=== PATIENT | female | born 1990 | race Two or more races ===

== ENCOUNTER 2017-12-24 11:21 | Emergency (ER) | payer MEDICAID ==
[~2017-12-24] VITALS: Ht 157.5 cm; Wt 56.0 kg
[~2017-12-24 11:21] MED LIST: BUPR200T2 PO; GABA-530 PO; HYDR-569 PO; MIRT30TA3 PO; QUET300T2 PO
[2017-12-24] MEDS ORDERED: IBUP-1984 PO (12:59)
[2017-12-24 13:17] VITALS: BP 108/74
== END 2017-12-24 13:18 | disposition home or self-care (01) ==
LOC: ER 11:21
DX: S05.11XA Contusion of eyeball and orbital tissues, right eye, initial encounter (principal); S60.212A Contusion of left wrist, initial encounter; S09.90XA Unspecified injury of head, initial encounter; S40.212A Abrasion of left shoulder, initial encounter; F12.90 Cannabis use, unspecified, uncomplicated; Z98.890 Other specified postprocedural states; Z56.0 Unemployment, unspecified; Z79.899 Other long term (current) drug therapy; X58.XXXA Exposure to other specified factors, initial encounter; Y93.89 Activity, other specified; Y92.89 Other specified places as the place of occurrence of the external cause; Y99.8 Other external cause status
CPT/HCPCS: 70450; 99284

== ENCOUNTER 2018-05-23 15:46 | Emergency (ER) | payer MEDICAID ==
[~2018-05-23] VITALS: Ht 157.5 cm; Wt 50.0 kg
[~2018-05-23 15:46] MED LIST changes: +HYDR-4383 PO; -HYDR-569 PO
[2018-05-23 15:51] VITALS: BP 129/78
[2018-05-23] MEDS ORDERED: LORazepam 1 MG tablet PO ONE (16:25)
[2018-05-23] MEDS ORDERED: LORA0.5T PO (16:42)
== END 2018-05-23 17:21 | disposition home or self-care (01) ==
LOC: EEVIPCON 15:46 → ER 15:46
DX: F41.9 Anxiety disorder, unspecified (principal); T74.91XA Unspecified adult maltreatment, confirmed, initial encounter; F12.90 Cannabis use, unspecified, uncomplicated; Z98.890 Other specified postprocedural states; Z79.899 Other long term (current) drug therapy; Z56.0 Unemployment, unspecified; Y92.89 Other specified places as the place of occurrence of the external cause
CPT/HCPCS: 99284

== ENCOUNTER 2018-07-01 17:04 | Emergency (ER) | payer MEDICAID ==
[~2018-07-01] VITALS: Ht 157.5 cm; Wt 52.0 kg
[2018-07-01 18:15] LABS: CLARITY,URINE CLEAR (Clear); COLOR,URINE STRAW (Yellow); GLUCOSE, URINE NEGATIVE (Neg); KETONES,URINE NEGATIVE (Neg); LEUKOCYTE ESTERASE ,URINE NEGATIVE (Neg); NITRITES, URINE NEGATIVE (Neg); OCCULT BLOOD,URINE NEGATIVE (Neg); PROTEIN,URINE NEGATIVE (Neg); UROBILINOGEN,URINE 0.2 E.U/dL (0.2-1.0)
[2018-07-01 18:17] LABS: UA COLLECTION TYPE CLN CATCH MIDSTREAM
[2018-07-01 19:06] VITALS: BP 117/74
--- NOTE | 2018-07-01 19:08 | NUR ---
amy shaver at bedside reporting the US she performed is normal and that pt will need to return for f/u with OB. Pt reports she has appt wtih OB in 2.5 weeks.
--- NOTE | 2018-07-01 19:16 | NUR ---
PER PAULO CANNON, NO NEED FOR PELVIC SET UP PT TO BE DISCHARGED. PT DENIES ANY VAGINAL BLEEDING
== END 2018-07-01 19:18 | disposition home or self-care (01) ==
LOC: ER 17:05
DX: O20.0 Threatened abortion (principal); F12.90 Cannabis use, unspecified, uncomplicated; Z3A.09 9 weeks gestation of pregnancy; Z56.0 Unemployment, unspecified
CPT/HCPCS: 36415; 81003; 84702; 99284

== ENCOUNTER 2018-09-14 08:20 | Emergency (ER) | payer MEDICAID ==
[~2018-09-14] VITALS: Ht 157.5 cm; Wt 53.0 kg
[2018-09-14 08:47] VITALS: BP 106/40
== END 2018-09-14 10:01 | disposition home or self-care (01) ==
LOC: ER 08:21
DX: O26.892 Other specified pregnancy related conditions, second trimester (principal); R10.2 Pelvic and perineal pain; F12.90 Cannabis use, unspecified, uncomplicated; Z98.890 Other specified postprocedural states; Z56.0 Unemployment, unspecified; Z79.899 Other long term (current) drug therapy; Z3A.20 20 weeks gestation of pregnancy
CPT/HCPCS: 99281

== ENCOUNTER 2019-02-18 16:27 | Emergency (ER) | payer MEDICAID ==
[~2019-02-18] VITALS: Ht 160 cm; Wt 64.3 kg
[2019-02-18 16:48] VITALS: BP 118/70
[2019-02-18] MEDS ORDERED: BUPR200T2 PO (17:14)
== END 2019-02-18 17:25 | disposition home or self-care (01) ==
LOC: ER 16:28
DX: F32.9 Major depressive disorder, single episode, unspecified (principal); F41.9 Anxiety disorder, unspecified; F15.90 Other stimulant use, unspecified, uncomplicated; Z98.890 Other specified postprocedural states; Z56.0 Unemployment, unspecified; Z79.899 Other long term (current) drug therapy
CPT/HCPCS: 99284

== ENCOUNTER 2019-04-05 20:30 | Emergency (ER) | payer MEDICAID ==
[~2019-04-05] VITALS: Ht 157.5 cm; Wt 54.0 kg
[2019-04-05 20:38] VITALS: BP 127/79
[2019-04-05] MEDS ORDERED: PENI250T2 PO (21:07)
[2019-04-05] MEDS ORDERED: NAPR-56 PO (21:07)
== END 2019-04-05 21:18 | disposition home or self-care (01) ==
LOC: ER 20:31
DX: K08.89 Other specified disorders of teeth and supporting structures (principal); F12.90 Cannabis use, unspecified, uncomplicated; Z56.0 Unemployment, unspecified; Z98.890 Other specified postprocedural states
CPT/HCPCS: 99283

== ENCOUNTER 2019-06-27 19:11 | Emergency (ER) | payer MEDICAID ==
[~2019-06-27] VITALS: Ht 157.5 cm; Wt 63.6 kg
[2019-06-27 19:15] VITALS: BP 129/83
== END 2019-06-27 20:41 | disposition left against medical advice (07) ==
LOC: ER 19:12
DX: M79.644 Pain in right finger(s) (principal); Z53.21 Procedure and treatment not carried out due to patient leaving prior to being seen by health care provider; W22.8XXA Striking against or struck by other objects, initial encounter; Y93.89 Activity, other specified; Y92.89 Other specified places as the place of occurrence of the external cause; Y99.9 Unspecified external cause status

== ENCOUNTER 2019-08-13 11:42 | Emergency (ER) | payer MEDICAID, OTHER ==
[~2019-08-13] VITALS: Ht 157.5 cm; Wt 63.3 kg
[2019-08-13 12:02] VITALS: BP 142/71
[2019-08-13] MEDS ORDERED: hydrOXYzine 25 MG tablet PO ONE (13:05)
[2019-08-13] MEDS ORDERED: HYDR-3686 PO (13:51)
== END 2019-08-13 14:05 | disposition home or self-care (01) ==
LOC: ER 11:44
DX: F41.9 Anxiety disorder, unspecified (principal); F12.90 Cannabis use, unspecified, uncomplicated; Z98.890 Other specified postprocedural states; Z56.0 Unemployment, unspecified; Z79.899 Other long term (current) drug therapy
CPT/HCPCS: 99283

== ENCOUNTER 2020-03-26 09:59 | Emergency (ER) | payer MEDICAID, OTHER ==
[~2020-03-26] VITALS: Ht 157.5 cm; Wt 65.9 kg
[2020-03-26 10:04] VITALS: BP 129/78
[2020-03-26] MEDS ORDERED: ALPR1TAB2 PO (10:50)
== END 2020-03-26 10:55 | disposition home or self-care (01) ==
LOC: ER 09:59
DX: F41.9 Anxiety disorder, unspecified (principal); F12.90 Cannabis use, unspecified, uncomplicated; Z76.0 Encounter for issue of repeat prescription; Z56.0 Unemployment, unspecified; Z98.890 Other specified postprocedural states; Z79.899 Other long term (current) drug therapy
CPT/HCPCS: 99281

== ENCOUNTER 2020-08-17 11:57 | Emergency (ER) | payer MEDICAID, OTHER ==
[~2020-08-17] VITALS: Ht 157.5 cm; Wt 65.5 kg
[~2020-08-17 11:57] MED LIST changes: +ALPR1TAB2 PO
[2020-08-17 12:05] VITALS: BP 141/88
--- NOTE | 2020-08-17 14:02 | NUR ---
Called patient regarding not being lobby for the third time. Listed number was disconnected and next of kin didn't answer. aware.
[2020-08-17] MEDS ORDERED: CYCL-1 PO (20:13)
== END 2020-08-17 14:05 | disposition left against medical advice (07) ==
LOC: ER 11:58
DX: M54.2 Cervicalgia (principal); Z53.21 Procedure and treatment not carried out due to patient leaving prior to being seen by health care provider

== ENCOUNTER 2020-08-17 17:57 | Emergency (ER) | payer MEDICAID, OTHER ==
[~2020-08-17] VITALS: Ht 157.5 cm; Wt 67.7 kg
[2020-08-17 19:12] VITALS: BP 129/77
[2020-08-17] MEDS ORDERED: CYCL-1 PO (20:13)
[2020-08-17] MEDS ORDERED: ketorolac trometh inj. 60 MG/2 ML VIAL IM ONE (20:15)
== END 2020-08-17 20:34 | disposition home or self-care (01) ==
LOC: ER 17:59 → EEVIPCON 17:59 → ER 20:34
DX: S16.1XXA Strain of muscle, fascia and tendon at neck level, initial encounter (principal); M62.838 Other muscle spasm; F41.9 Anxiety disorder, unspecified; F12.90 Cannabis use, unspecified, uncomplicated; Z98.890 Other specified postprocedural states; Z56.0 Unemployment, unspecified; Z79.899 Other long term (current) drug therapy; Y08.89XA Assault by other specified means, initial encounter; Y93.89 Activity, other specified; Y92.89 Other specified places as the place of occurrence of the external cause; Y99.8 Other external cause status
CPT/HCPCS: 72040; 96372; 99283; J1885

== ENCOUNTER 2021-11-19 12:16 | Emergency (ER) | payer SELFPAY ==
[~2021-11-19] VITALS: Ht 157.5 cm; Wt 59.1 kg
[~2021-11-19 12:16] MED LIST changes: +CYCL-1 PO
[2021-11-19 12:34] VITALS: BP 122/74
--- NOTE | 2021-11-19 13:19 | NUR ---
[facility] in triage 2 with patient.
[2021-11-19] MEDS ORDERED: ondansetron 4mg rapidly disintigrating tab PO ONE (14:00)
[2021-11-19] MEDS ORDERED: IBUP-1986 PO (14:23)
== END 2021-11-19 15:43 | disposition home or self-care (01) ==
LOC: EEVIPCON 12:17 → ER 12:17
DX: S50.311A Abrasion of right elbow, initial encounter (principal); R68.84 Jaw pain; R07.9 Chest pain, unspecified; Y04.0XXA Assault by unarmed brawl or fight, initial encounter; Y93.89 Activity, other specified; Y92.89 Other specified places as the place of occurrence of the external cause; Y99.8 Other external cause status
CPT/HCPCS: 70110; 99283

== ENCOUNTER 2022-05-03 01:07 | Emergency (ER) | payer MEDICAID ==
[~2022-05-03 01:07] MED LIST changes: +IBUP-1986 PO
[2022-05-03] MEDS ORDERED: BUPR200T2 PO (10:21)
== END 2022-05-03 05:10 | disposition left against medical advice (07) ==
LOC: ER 01:07
DX: Z76.0 Encounter for issue of repeat prescription (principal); Z53.21 Procedure and treatment not carried out due to patient leaving prior to being seen by health care provider

== ENCOUNTER 2022-05-03 08:51 | Emergency (ER) | payer MEDICAID ==
[~2022-05-03] VITALS: Ht 157.5 cm; Wt 59.1 kg
[2022-05-03 09:10] VITALS: BP 103/66
[2022-05-03] MEDS ORDERED: buPROPion 100mg tablet PO ONE (10:20)
[2022-05-03] MEDS ORDERED: BUPR200T2 PO (10:21)
== END 2022-05-03 10:45 | disposition home or self-care (01) ==
LOC: ER 08:51
DX: F32.A Depression, unspecified (principal); F12.10 Cannabis abuse, uncomplicated; Z76.0 Encounter for issue of repeat prescription; Z79.899 Other long term (current) drug therapy
CPT/HCPCS: 99282; 99283

== ENCOUNTER 2022-05-17 16:06 | Emergency (ER) | payer MEDICAID ==
[~2022-05-17] VITALS: Ht 175.3 cm; Wt 84.1 kg
[2022-05-17 20:36] VITALS: BP 119/68
== END 2022-05-18 05:05 | disposition left against medical advice (07) ==
LOC: ER 16:06
DX: R51.9 Headache, unspecified (principal); Z53.21 Procedure and treatment not carried out due to patient leaving prior to being seen by health care provider

== ENCOUNTER 2022-09-05 12:35 | Emergency (ER) | payer MEDICAID ==
[~2022-09-05] VITALS: Ht 157.5 cm; Wt 70.0 kg
[2022-09-05 12:40] VITALS: BP 129/99
[2022-09-05] MEDS ORDERED: BUPR200T2 PO (14:05)
== END 2022-09-05 14:33 | disposition home or self-care (01) ==
LOC: ER 12:36
DX: F41.9 Anxiety disorder, unspecified (principal); F32.9 Major depressive disorder, single episode, unspecified; F12.90 Cannabis use, unspecified, uncomplicated; Z76.0 Encounter for issue of repeat prescription; Z98.890 Other specified postprocedural states; Z56.0 Unemployment, unspecified; Z79.899 Other long term (current) drug therapy
CPT/HCPCS: 99281

== ENCOUNTER 2022-10-27 08:30 | Emergency (ER) | payer MEDICAID ==
[~2022-10-27] VITALS: Ht 157.5 cm; Wt 68.2 kg
[2022-10-27 08:40] VITALS: BP 115/84
[2022-10-27] MEDS ORDERED: BUPR200T2 PO ×2 (09:14→09:33)
== END 2022-10-27 09:35 | disposition home or self-care (01) ==
LOC: ER 08:30
DX: Z76.0 Encounter for issue of repeat prescription (principal); F12.90 Cannabis use, unspecified, uncomplicated; Z56.0 Unemployment, unspecified
CPT/HCPCS: 99281; 99283

== ENCOUNTER 2022-12-10 12:15 | Emergency (ER) | payer OTHER, MEDICAID ==
[~2022-12-10] VITALS: Ht 157.5 cm; Wt 64.0 kg
[2022-12-10] MEDS ORDERED: TINIDAZOLE 500 MG TABLET PO ONE (13:45)
[2022-12-10] MEDS ORDERED: azithromycin 250mg tablet PO ONE (13:45)
[2022-12-10] MEDS ORDERED: LEVONORGESTREL 1.5MG tablet 1.5 MG TABLET PO ONE (13:45)
[2022-12-10] MEDS ORDERED: CefTRIAXone 500MG IM Kit w/LIDOcaine (for pt below or = to 150kg) IM ONE (13:45)
[2022-12-10 14:30] LABS: URINE HCG NEGATIVE (NEG)
[2022-12-10 16:46] LABS: ALBUMIN 4.2 G/DL (3.4-5.0); ANION GAP 9 (8-16); BLOOD UREA NITROGEN 8 MG/DL (7-18); BUN/CREATININE RATIO 8.8 (10.0-20.0); CALCIUM 9.1 MG/DL (8.5-10.1); CHLORIDE 101 MMOL/L (99-107); CREATININE 0.91 MG/DL (0.40-0.90); GLUCOSE 76 MG/DL (70-104); POTASSIUM 3.6 MMOL/L (3.5-5.1); SODIUM 138 MMOL/L (135-145); TOTAL CARBON DIOXIDE 27.7 MMOL/L (24-32); eGFR 71 ML/MIN
[2022-12-10] MEDS ORDERED: iohexol 350MG/ML 100ml bottle IV ONE (17:42)
[2022-12-10] MEDS ORDERED: ALPR2TAB2 PO (18:40)
[2022-12-10] MEDS ORDERED: ALPRAZolam 0.5mg tablet PO ONE ×2 (19:07→19:13)
[2022-12-10 19:40] VITALS: BP 112/77
== END 2022-12-10 19:49 | disposition home or self-care (01) ==
LOC: EEVIPCON 12:15 → ER 12:15
DX: T76.21XA Adult sexual abuse, suspected, initial encounter (principal); R10.2 Pelvic and perineal pain; M79.604 Pain in right leg; M79.605 Pain in left leg; F31.9 Bipolar disorder, unspecified; F12.10 Cannabis abuse, uncomplicated; Z56.0 Unemployment, unspecified
CPT/HCPCS: 36415; 70498; 80048; 81025; 96372; 99285; J0696; J3490; Q9967

== ENCOUNTER 2022-12-21 13:05 | Emergency (ER) | payer MEDICAID, OTHER ==
[~2022-12-21] VITALS: Ht 157.5 cm; Wt 90.0 kg
[~2022-12-21 13:05] MED LIST changes: +ALPR2TAB2 PO
[2022-12-21 15:22] VITALS: BP 124/85
[2022-12-21] MEDS ORDERED: LORazepam 1 MG tablet PO ONE (15:55)
[2022-12-21] MEDS ORDERED: LORA-269 PO (15:57)
== END 2022-12-21 16:15 | disposition home or self-care (01) ==
LOC: ER 13:06
DX: F41.1 Generalized anxiety disorder (principal); F32.9 Major depressive disorder, single episode, unspecified; F12.90 Cannabis use, unspecified, uncomplicated; Z56.0 Unemployment, unspecified; Z98.890 Other specified postprocedural states; Z79.899 Other long term (current) drug therapy
CPT/HCPCS: 99283

== ENCOUNTER 2023-08-03 20:54 | Emergency (ER) | payer OTHER, MEDICAID ==
[~2023-08-03] VITALS: Ht 157.5 cm; Wt 63.6 kg
[~2023-08-03 20:54] MED LIST changes: +LORA-269 PO; +MIRT-140 PO; -MIRT30TA3 PO
[2023-08-03 21:00] VITALS: BP 117/81; PULSE 63; RESP 16; TEMP 97.7; O2SAT 100
[2023-08-03] MEDS: cyclobenzaprine 10mg tablet PO ONE (21:15)
[2023-08-03] MEDS: acetaminophen 325mg tablet PO ONE (21:16)
[2023-08-03] MEDS ORDERED: METH-798 PO (21:34)
== END 2023-08-03 21:49 | disposition home or self-care (01) ==
LOC: ER 20:55
DX: S13.9XXA Sprain of joints and ligaments of unspecified parts of neck, initial encounter (principal); R51.9 Headache, unspecified; F31.9 Bipolar disorder, unspecified; F12.10 Cannabis abuse, uncomplicated; Z56.0 Unemployment, unspecified; Z79.899 Other long term (current) drug therapy; V98.8XXA Other specified transport accidents, initial encounter; Y93.89 Activity, other specified; Y92.89 Other specified places as the place of occurrence of the external cause; Y99.8 Other external cause status
CPT/HCPCS: 99283

== ENCOUNTER 2024-05-21 09:14 | Emergency (ER) | payer MEDICAID ==
[~2024-05-21] VITALS: Ht 157.5 cm; Wt 51.6 kg
[~2024-05-21 09:14] MED LIST changes: +METH-798 PO
[2024-05-21] MEDS ORDERED: AMPH10TA23 PO (11:39)
[2024-05-21] MEDS: acetaminophen 325mg tablet PO ONE (13:36)
[2024-05-21] MEDS ORDERED: HYDR-3686 PO (13:51)
[2024-05-21 14:26] VITALS: BP 138/74; PULSE 84; RESP 16; TEMP 98.1; O2SAT 97
== END 2024-05-21 13:57 | disposition home or self-care (01) ==
LOC: EEVIPCON 09:15 → ER 09:15
DX: R51.9 Headache, unspecified (principal); M79.605 Pain in left leg; M79.604 Pain in right leg; F41.9 Anxiety disorder, unspecified; F32.A Depression, unspecified; F12.90 Cannabis use, unspecified, uncomplicated; Z56.0 Unemployment, unspecified; Z79.1 Long term (current) use of non-steroidal anti-inflammatories (NSAID); Z79.899 Other long term (current) drug therapy; Y04.0XXA Assault by unarmed brawl or fight, initial encounter; Y93.89 Activity, other specified; Y92.89 Other specified places as the place of occurrence of the external cause; Y99.8 Other external cause status
CPT/HCPCS: 70450; 72125; 99284

== ENCOUNTER 2024-08-15 12:32 | Emergency (ER) | payer MEDICAID, OTHER ==
[~2024-08-15] VITALS: Ht 157.5 cm; Wt 53.7 kg
[~2024-08-15 12:32] MED LIST changes: +AMPH10TA23 PO; -BUPR200T2 PO; -CYCL-1 PO; +HYDR-3686 PO; -HYDR-4383 PO; -LORA-269 PO; -METH-798 PO; -MIRT-140 PO; -QUET300T2 PO
[2024-08-15 12:34] VITALS: BP 109/73; PULSE 105; TEMP 98; O2SAT 100
[2024-08-15] MEDS ORDERED: LIDO700A32 TOP (12:53)
[2024-08-15] MEDS ORDERED: HYDR-3965 PO (12:53)
[2024-08-15] MEDS ORDERED: DICL20GE TOP (12:53)
[2024-08-15] MEDS ORDERED: CYCL-394 PO (12:53)
[2024-08-15] MEDS ORDERED: NAPR-56 PO (12:53)
[2024-08-15 13:09] VITALS: RESP 18
[2024-08-15] MEDS: HYDROcodone/acetaminophen 5mg/325mg tablet PO ONE (13:09)
== END 2024-08-15 13:15 | disposition home or self-care (01) ==
LOC: ER 12:33
DX: S22.42XA Multiple fractures of ribs, left side, initial encounter for closed fracture (principal); G89.11 Acute pain due to trauma; F12.90 Cannabis use, unspecified, uncomplicated; F41.9 Anxiety disorder, unspecified; F32.A Depression, unspecified; Z56.0 Unemployment, unspecified; Z98.890 Other specified postprocedural states; Z79.1 Long term (current) use of non-steroidal anti-inflammatories (NSAID); Z79.899 Other long term (current) drug therapy; V89.2XXA Person injured in unspecified motor-vehicle accident, traffic, initial encounter; Y93.89 Activity, other specified; Y92.89 Other specified places as the place of occurrence of the external cause; Y99.8 Other external cause status
CPT/HCPCS: 99283

== ENCOUNTER 2024-09-10 18:28 | Emergency (ER) | payer MEDICAID, OTHER ==
[~2024-09-10] VITALS: Ht 157.5 cm; Wt 58.2 kg
[~2024-09-10 18:28] MED LIST changes: +DICL20GE TOP; +LIDO700A32 TOP; +NAPR-56 PO
[2024-09-10 18:32] VITALS: BP 110/64; PULSE 67; RESP 18; TEMP 97.6; O2SAT 100
== END 2024-09-10 19:03 | disposition home or self-care (01) ==
LOC: ER 18:29
DX: F13.20 Sedative, hypnotic or anxiolytic dependence, uncomplicated (principal); F12.90 Cannabis use, unspecified, uncomplicated; F41.9 Anxiety disorder, unspecified; F32.A Depression, unspecified; Z79.899 Other long term (current) drug therapy; Z56.0 Unemployment, unspecified; Z98.890 Other specified postprocedural states
CPT/HCPCS: 99281